=== PATIENT | female | born 1965 | race Caucasian/White ===

== ENCOUNTER 2018-11-08 14:06 | Emergency (ER) | payer OTHER ==
[~2018-11-08 14:06] MED LIST: IBUP-1618 PO; LOR5 PO
--- NOTE | 2018-11-08 14:09 | ER Report ---
History and Physical Time Seen By MD: 14:09 HPI/JOCELIN CHIEF COMPLAINT: Fall HISTORY OF PRESENT ILLNESS: This is a 53-year-old female who presents to the emergency department for a fall. Patient states about 30 minutes prior to arrival, she tripped over a sidewalk and fell down with her left arm outstretched to break her fall. She now has left hand, wrist and elbow pain. She denies hitting her head. No loss of consciousness. No pain in the shoulder or neck. No recent fevers or chills. No nausea vomiting. No other complaints. REVIEW OF SYSTEMS: Respiratory: No cough, no dyspnea. Cardiovascular: No chest pain, no palpitations. Gastrointestinal: No vomiting, no abdominal pain. Musculoskeletal: As above. Allergies: Coded Allergies: No Known Drug Allergies (Verified , 08/25/10) Home Meds Active Scripts Hydrocodone Bit/Acetaminophen (HYDROCODON-ACETAMINOPHEN 5-325) 1 Each Tablet, 1 EACH PO Q4-6H PRN for PAIN, #10 TAB Prov:BACILIO GRAVES AUTO PHONE INSTALLER-BC 11/08/18 Reported Medications Ibuprofen (Motrin) 400 Mg Tablet, 400 MG PO TID, #21 0 Refills 08/25/10 Acetaminophen/Hydrocodone (Lortab 5/500) 5 Mg/500 Mg Tab, 1 - 2 TAB PO Q6H, #16 0 Refills 08/25/10 Past Medical/Surgical History The patient has a past medical and surgical history of wearing glasses, hypertension, postmenopausal, tubal ligation. Hx Substance Use Disorder: No Hx Alcohol Use: Yes (OCC) Constitutional Vital Sign - Last 24 Hours 11/08/18 11/08/18 11/08/18 11/08/18 14:11 14:21 14:24 14:30 Temp 98.0 Pulse 85 91 Resp 16 B/P (MAP) 140/99 (113) 140/99 ???/??? (0125) Pulse Ox 94 94 O2 Delivery Room Air 11/08/18 11/08/18 11/08/18 11/08/18 14:36 14:51 15:00 15:06 Pulse 84 88 88 B/P (MAP) ???/??? (1425) Pulse Ox 93 94 95 11/08/18 11/08/18 11/08/18 11/08/18 15:21 15:30 15:36 15:39 Pulse 85 89 B/P (MAP) ???/??? (1665) 143/107 (119) Pulse Ox 95 94 11/08/18 11/08/18 11/08/18 11/08/18 15:51 15:56 16:04 16:11 Pulse 86 87 80 Resp 9 B/P (MAP) 146/110 (122) Pulse Ox 94 90 98 11/08/18 11/08/18 11/08/18 11/08/18 16:26 16:30 16:41 16:50 Pulse 77 82 Resp 13 20 B/P (MAP) 144/91 (108) 142/100 (114) Pulse Ox 94 96 11/08/18 11/08/18 11/08/18 11/08/18 16:55 16:56 17:00 17:05 Pulse 84 Resp 8 B/P (MAP) 149/105 (120) 150/101 (117) 142/104 (117) Pulse Ox 97 Physical Exam General Appearance: The patient is alert, has no immediate need for airway protection and no current signs of toxicity. Eyes: Pupils equal and round no injection. Respiratory: Chest is non tender, lungs are clear to auscultation. Cardiac: regular rate and rhythm. Gastrointestinal: Abdomen is soft and non tender, no masses, bowel sounds normal. Musculoskeletal: Neck: Neck is supple and non tender. Extremities Examination of the Left hand reveals no acute deformity. The patient is able to give a thumbs up sign, is able to make an okay sign, and is able to AB duct the fingers. Sensation is intact over the dorsal 1st web space, the volar aspect of the 2nd finger, and the volar aspect of the 5th finger. Capillary refill is brisk. Very minimal flexion and extension of the left although, very painful with any movement. No obvious deformities, no crepitus or bruising. Skin: No rashes or lesions. [ ] DIFFERENTIAL DIAGNOSIS: After history and physical exam differential diagnosis was considered for contusion, fracture, subluxation. Medical Decision Making [place] [facility] [place] Mur[place] : 1965 Visit/Account:[id number] Date of Sevice: 11/08/2018 Exam type: XR WRIST 3 OR MORE VIEWS LT History: fall, pain Comparison: None. Findings: Three views of the left wrist demonstrate no evidence of acute fracture or dislocation or significant osteoarthritis. IMPRESSION: 1. No acute osteoarticular abnormality the left wrist is seen Report Dictated By: Anisha Ocasio MD at 11/08/2018 2:57 PM Report E-Signed By: Anisha Ocasio MD at 11/08/2018 3:01 PM WSN:[email or web address] [place] [facility] [place] Mur[place] : 1965 Visit/Account:[id number] Date of Sevice: 11/08/2018 INDICATION: fall, pain. Fall. DATE: 11/08/2018 2:45 PM. TECHNIQUE: HAND COMPLETE LEFT COMPARISON: None FINDINGS: No fracture identified. Degenerative fine some mild to moderate the DIP joints. Several of the tiny calcific densities adjacent to the IP joints are presumably degenerative in nature. IMPRESSION: No fracture identified. Report Dictated By: Kendra Hayes MD at 11/08/2018 2:45 PM Report E-Signed By: Kendra Hayes MD at 11/08/2018 2:48 PM WSN:[id number] EXAMINATION: Left forearm radiographs 2 views HISTORY: Fall. COMPARISON: None. FINDINGS: 2 views of the left forearm are obtained. Bones: There appears to be an acute avulsion fracture of the coronoid process of the ulna. Joint spaces: The radial head is dislocated posteriorly. Hardware: None. Soft tissues: Enthesophytes at the lateral condyle. IMPRESSION: Dislocation of the left radial head. Probable acute avulsion fracture of the coronoid process of the ulna. Report Dictated By: Holden Negron MD at 11/08/2018 4:37 PM Report E-Signed By: Holden Negron MD at 11/08/2018 4:46 PM WSN:[id number] Exam type: ELBOW 2 VIEW LEFT History: Post reduction Comparison: Left elbow series performed earlier today. Findings: A single lateral postreduction view of the left elbow was submitted. The previously described posterior dislocation of the left elbow has been reduced with the elbow appearing in good anatomic alignment on the lateral view. Fracture through the coronoid process is again noted. There is prominence of the anterior and posterior fat pads consistent with an intra-articular effusion. Spurring is noted along the posterior aspect the olecranon IMPRESSION: 1. There has been interval reduction of the previously described posterior dislocation of the left elbow which has now been reduced in good anatomic alignment on the lateral view. Coronoid fracture Left elbow joint effusion Report Dictated By: Anisha Ocasio MD at 11/08/2018 5:10 PM Report E-Signed By: Anisha Ocasio MD at 11/08/2018 5:11 PM WSN:[email or web address] [place] [facility] [place] Mur[place] : 1965 Visit/Account:[id number] Date of Sevice: 11/08/2018 Exam type: XR WRIST 3 OR MORE VIEWS LT History: fall, pain Comparison: None. Findings: Three views of the left wrist demonstrate no evidence of acute fracture or dislocation or significant osteoarthritis. IMPRESSION: 1. No acute osteoarticular abnormality the left wrist is seen Report Dictated By: Anisha Ocasio MD at 11/08/2018 2:57 PM Report E-Signed By: Anisha Ocasio MD at 11/08/2018 3:01 PM WSN:[email or web address] [place] [facility] [place] Juan Mur[place] : 1965 Visit/Account:[id number] Date of Sevice: 11/08/2018 INDICATION: fall, pain. Fall. DATE: 11/08/2018 2:45 PM. TECHNIQUE: HAND COMPLETE LEFT COMPARISON: None FINDINGS: No fracture identified. Degenerative fine some mild to moderate the DIP joints. Several of the tiny calcific densities adjacent to the IP joints are presumably degenerative in nature. IMPRESSION: No fracture identified. Report Dictated By: Kendra Hayes MD at 11/08/2018 2:45 PM Report E-Signed By: Kendra Hayes MD at 11/08/2018 2:48 PM WSN:[email or web address] PATIENT NAME: Juan Murillo : 1965 MR: [id number] V: [id number] EXAM DATE: ORDERING PHYSICIAN: BACILIO GRAVES TECHNOLOGIST: [place] [facility] [place] Mur[place] : 1965 Visit/Account:[id number] Date of Sevice: 11/08/2018 Exam type: ELBOW 3 VIEW LEFT History: fall, pain Comparison: None. Findings: There has been posterior dislocation of the proximal left radius and ulna with respect to the distal left humerus as seen on the lateral view. There is a triangular-shaped bony fragment projecting just anterior to the antecubital fossa on the lateral view. This is likely a fracture of the coronoid process. Multiple loose bodies project just dorsal to the olecranon process on the lateral view. There is a bone spur projecting along the lateral humeral epicondyles. There is an additional bony density projecting along the medial humeral condyle may represent a bone spur or avulsion fracture fragment. IMPRESSION: 1. Fracture dislocation of the left elbow as described above Report Dictated By: Anisha Ocsaio MD at 11/08/2018 2:53 PM Report E-Signed By: Anisha Ocasio MD at 11/08/2018 2:57 PM WSN:[email or web address] ED Course/Re-evaluation Clinical Indication for ER IV: IV Access ED Course The patient was admitted to room. A history of physical were obtained. Differential diagnoses were considered. An x-ray of the left elbow showing a posterior dislocation with a fracture, an IV was started. 4 mg IV Zofran and 5 mg IV morphine were given. I reviewed the imaging results with the patient's, I also spoke with Dr. Coyne the orthopedist on-call, he said we could go ahead and attempt to reduce the elbow. The patient was sedated as noted below, we did have a positive reduction of the left elbow, patient tolerated very well. Negative forearm, wrist and hand x-ray. Patient was placed in a splint as noted below. Placed in a sling and instructed to follow up with [facility] for reevaluation. The patient expressed understanding and was discharged home. She was also given a prescription for hydrocodone. 11/08/2018 3:50:33 pm I did speak with Dr. Coyne, we reviewed the images, he felt that it was okay to proceed with a reduction of the elbow. 11/08/2018 4:16:[address] Coyne was able two-view of the images, he did call back, if we have difficulties with the reduction we will contact Dr. Coyne at which time he will likely come in for assistance. Procedure: Procedural sedation. A pre-sedation evaluation was completed on the patient at 1708. Patient is an appropriate candidate for procedural sedation. The risks of the sedation were discussed with the patient. A time out was completed. The patient was sedated with 100 mg IV propofol. The patient was monitored with continuous pulse oximetry and youth nutritional monitor. There were no complications and no significant hypoxemia. I remained at the bedside for the sedation. The total time I spent in the procedural sedation was [address] Mares was at the bedside assisting with sedation. Procedure: Splint placement. A two sugar tong splints were applied to the left forearm and upper arm. I assisted with the splint placement. The splint was adequately immobilizing the joint and distal to the splint the patient's circulation and sensation was intact. Decision to Disposition Date: Nov 08, 2018 Decision to Disposition Time: 17:53 Depart Departure Latest Vital Signs Vital Signs Date Time Temp Pulse Resp B/P (MAP) Pulse Ox O2 Delivery O2 Flow Rate FiO2 11/08/18 17:05 142/104 (117) 11/08/18 16:56 84 8 97 11/08/18 14:24 98.0 Room Air Impression: Primary Impression: Fracture dislocation of left elbow joint Condition: Improved Disposition: HOME OR SELF-CARE Referrals: JANET DEVINE MD (PCP) NADIRA REICH MD 5 Days New Scripts Hydrocodone Bit/Acetaminophen (HYDROCODON-ACETAMINOPHEN 5-325) 1 Each Tablet 1 EACH PO Q4-6H PRN for PAIN, #10 TAB Prov: LINGSANJAYNORBERTCARYLBACILIO Eugenia AUTO PHONE INSTALLER-BC 11/08/18 Patient Instructions: Elbow Fracture (ED) Additional Instructions: Your elbow was reduced and put back in place, you do however have a fracture too, this will require follow up with Orthopedics. Please call [facility] tomorrow and schedule a follow up appointment. Please drink plenty of water. Get plenty of rest. Keep the splint and sling on until you follow up with Ortho. Take Ibuprofen and or Tylenol for pain. Take Hydrocodone for severe pain. Return to the ED for any other concerns or worsening symptoms. Problem Qualifiers Primary Impression: Fracture dislocation of left elbow joint Encounter type: initial encounter Fracture type: closed Qualified Codes: S42.402A - Unspecified fracture of lower end of left humerus, initial encounter for closed fracture BACILIO GRAVES-AKIL Nov 08, 2018 14:09
--- NOTE | 2018-11-08 14:53 | RADIOLOGY IMAGING REPORT ---
[place]AC[place] [facility] [place] NAME: Juan Murillo : 1965 MR: [id number] V: [id number] EXAM DATE: ORDERING PHYSICIAN: BACILIO GRAVES TECHNOLOGIST: Location: [facility] Patient: Juan Murillo : 1965 Visit/Account:[id number] Date of Sevice: 11/08/2018 INDICATION: fall, pain. Fall. DATE: 11/08/2018 2:45 PM. TECHNIQUE: HAND COMPLETE LEFT COMPARISON: None FINDINGS: No fracture identified. Degenerative fine some mild to moderate the DIP joints. Several o f the tiny calcific densities adjacent to the IP joints are presumably degenerative in nature. IMPRESSION: No fracture identified. Report Dictated By: Kendra Hayes MD at 11/08/2018 2:45 PM Report E-Signed By: Kendra Hayes MD at 11/08/2018 2:48 PM WSN:[id number]
--- NOTE | 2018-11-08 15:03 | RADIOLOGY IMAGING REPORT ---
FACILITY: [facility] [place] PATIENT NAME: Juan Murillo : 1965 MR: [id number] V: [id number] EXAM DATE: ORDERING PHYSICIAN: BACILIO GRAVES TECHNOLOGIST: Location: [facility] [place] Patient: Juna Murillo : 1965 Visit/Account:[id number] Date of Sevice: 11/08/2018 Exam type: ELBOW 3 VIEW LEFT History: fall, pain Comparison: None. Findings: There has been posterior dislocation of the proximal left radius and ulna with respect to the distal left humerus as seen on the lateral view. There is a triangular-shaped bony fragment projecting just anterior to the antecubital fossa on the lateral view. This is likely a fracture of the coronoid pr ocess. Multiple loose bodies project just dorsal to the olecranon process on the lateral view. Ther e is a bone spur projecting along the lateral humeral epicondyles. There is an additional bony densi ty projecting along the medial humeral condyle may represent a bone spur or avulsion fracture fragmen t. IMPRESSION: 1. Fracture dislocation of the left elbow as described above Report Dictated By: Anisha Ocasio MD at 11/08/2018 2:53 PM Report E-Signed By: Anisha Ocasio MD at 11/08/2018 2:57 PM VERONAN:[email or web address]
--- NOTE | 2018-11-08 15:06 | RADIOLOGY IMAGING REPORT ---
FACILITY: [facility] PATIENT NAME: Juan Murillo : 1965 MR: [id number] V: [id number] EXAM DATE: ORDERING PHYSICIAN: BACILIO GRAVES TECHNOLOGIST: Location: [facility] [place] Patient: Juan Murillo : 1965 Visit/Account:[id number] Date of Sevice: 11/08/2018 Exam type: XR WRIST 3 OR MORE VIEWS LT History: fall, pain Comparison: None. Findings: Three views of the left wrist demonstrate no evidence of acute fracture or dislocation or significant osteoarthritis. IMPRESSION: 1. No acute osteoarticular abnormality the left wrist is seen Report Dictated By: Anisha Ocasio MD at 11/08/2018 2:57 PM Report E-Signed By: Anisha Ocasio MD at 11/08/2018 3:01 PM WSN:[email or web address]
[2018-11-08] MEDS ORDERED: MORPHINE 10 MG/ML SYR IVP ONE (15:25)
[2018-11-08] MEDS ORDERED: ONDANSETRON 4 MG/2 ML VIAL IVP ONE (15:25)
[2018-11-08] MEDS ORDERED: PROPOFOL EMUL 10MG/ML 20 ML VL IV ONE (15:55)
--- NOTE | 2018-11-08 16:51 | RADIOLOGY IMAGING REPORT ---
[place] [facility] [place]: Juan Mur[place] : 1965 MR: [id number] V: [id number] EXAM DATE: ORDERING PHYSICIAN: BACILIO GRAVES TECHNOLOGIST: Location: [facility] [place] Patient: Juan Murillo : 1965 Visit/Account:[id number] Date of Sevice: 11/08/2018 EXAMINATION: Left forearm radiographs 2 views HISTORY: Fall. COMPARISON: None. FINDINGS: 2 views of the left forearm are obtained. Bones: There appears to be an acute avulsion fracture of the coronoid process of the ulna. Joint spaces: The radial head is dislocated posteriorly. Hardware: None. Soft tissues: Enthesophytes at the lateral condyle. IMPRESSION: Dislocation of the left radial head. Probable acute avulsion fracture of the coronoid process of the ulna. Report Dictated By: Holden Negron MD at 11/08/2018 4:37 PM Report E-Signed By: Holden Negron MD at 11/08/2018 4:46 PM WSN:[id number]
[2018-11-08] MEDS ORDERED: HYDR-385 PO (17:12)
--- NOTE | 2018-11-08 17:15 | RADIOLOGY IMAGING REPORT ---
FACILITY: [facility] PATIENT NAME: Juan Murillo : 1965 MR: [id number] V: [id number] EXAM DATE: ORDERING PHYSICIAN: JAYCEE ALLEN TECHNOLOGIST: Location: [facility] [place] Patient: Juan Murillo : 1965 Visit/Account:[id number] Date of Sevice: 11/08/2018 Exam type: ELBOW 2 VIEW LEFT History: Post reduction Comparison: Left elbow series performed earlier today. Findings: A single lateral postreduction view of the left elbow was submitted. The previously described maintenance instructor ior dislocation of the left elbow has been reduced with the elbow appearing in good anatomic alignmen t on the lateral view. Fracture through the coronoid process is again noted. There is prominence of the anterior and posterior fat pads consistent with an intra-articular effusion. Spurring is noted along the posterior aspect the olecranon IMPRESSION: 1. There has been interval reduction of the previously described posterior dislocation of the left e lbow which has now been reduced in good anatomic alignment on the lateral view. Coronoid fracture Left elbow joint effusion Report Dictated By: Anisha Ocasio MD at 11/08/2018 5:10 PM Report E-Signed By: Anisha Ocasio MD at 11/08/2018 5:11 PM WSN:[email or web address]
[2018-11-08 18:00] VITALS: BP 153/97
== END 2018-11-08 18:02 | disposition home or self-care (01) ==
LOC: ER 14:17
DX: S52.045A Nondisplaced fracture of coronoid process of left ulna, initial encounter for closed fracture (principal); S53.005A Unspecified dislocation of left radial head, initial encounter; W01.0XXA Fall on same level from slipping, tripping and stumbling without subsequent striking against object, initial encounter
CPT/HCPCS: 29105; 73070; 73080; 73090; 73110; 73130; 96374; 96375; 99152; 99285; J2270; J2405; J2704

== ENCOUNTER → 2018-11-21 | Outpatient (CLI) | payer OTHER ==
[~2018-11-21] MED LIST changes: +HYDR-385 PO
--- NOTE | 2018-11-21 10:00 | RADIOLOGY IMAGING REPORT ---
FACILITY: [facility] [place] PATIENT NAME: Juan Murillo : 1965 MR: [id number] V: [id number] EXAM DATE: ORDERING PHYSICIAN: NADIRA BEARD TECHNOLOGIST: Location: [facility] [place] Patient: Juan Murillo : 1965 Visit/Account:[id number] Date of Sevice: 11/21/2018 CT of the left elbow INDICATION: Elbow pain. Recent fracture or dislocation. Further characterize. COMPARISON: Plain films 11/08/2018 are reviewed. Technique: Axial CT images were obtained through the left elbow. Reformatted coronal and sagittal im ages were reviewed. One of the following dose optimization techniques was utilized in the performance of this exam: Autom ated exposure control; adjustment of the mA and/or kV according to the patient's size; or use of an i terative reconstruction technique. Specific details can be referenced in the facility's radiology C T exam operational policy. FINDINGS: A fiberglass splint is in place posteriorly. The alignment at the elbow joint is maintained. There is an intermediate to large elbow joint effusio n present. Multiple fractures are seen at the left elbow. With respect to the ulna, there is a fracture through the base of the coronoid process. Fracture fragment is elevated approximately 3 mm. There is slight d istal migration of the fracture fragment. With respect to the radius, there is an intra-articular fra cture identified. This involves the anterior third of the radial head and extends to the junction wit h the radial neck. This fracture line is oriented in the coronal plane. There is slight anterior elev ation of the fracture fragment measuring 2 mm. This results in a small fracture gap at the articular surface. There is slight offset at the articular surface which measures up to 1-2 mm. With respect to the distal humerus, there is an impaction type fracture deformity involving the poste rior margin of the capitellum. There are several small avulsion type fracture fragments in this locat ion. These appear mildly displaced and are felt to represent fracture fragment joint bodies. The larg est of these measures approximately 7 mm in length. There is circumferential edema about the elbow. This is most pronounced along the posterior margin of the elbow joint which extends to the dorsum of the forearm. There are well-corticated ossifications along the expected origins of the flexor and extensor tendons. This is consistent with chronic tendin opathy/epicondylitis. Correlate clinically. IMPRESSION: 1. Normal alignment at the left elbow joint with an intermediate to large joint effusion. 2. Acute fractures involving the coronoid process of the ulna and the anterior third of the radial he ad and neck with fracture displacement as described above. 3. Impaction type fracture deformity involving the posterior aspect of the capitellum of the distal h umerus with several small mildly displaced fracture fragments in this location. These fracture fragme nts are felt to represent fracture fragment joint bodies and are surrounded by joint fluid. 4. Extensive soft tissue swelling about the elbow extending to the dorsum of the forearm. Report Dictated By: Wai Kennedy at 11/21/2018 9:45 AM Report E-Signed By: Wai Kennedy at 11/21/2018 9:56 AM WSN:[id number]
== END ==
LOC: CT 01:36
PROVIDERS: ATTEND Orthopaedic Surgery
DX: M25.422 Effusion, left elbow (principal); S52.042A Displaced fracture of coronoid process of left ulna, initial encounter for closed fracture; S42.452A Displaced fracture of lateral condyle of left humerus, initial encounter for closed fracture